=== PATIENT | male | born 1990 | race Caucasian/White ===

== ENCOUNTER 2022-06-06 06:44 | Emergency (ER) | payer OTHER ==
[~2022-06-06] VITALS: Ht 182.9 cm; Wt 95.5 kg
[2022-06-06] MEDS ORDERED: NEOSPORIN OINT 0.9 GM PKT TOP ONE (08:25)
[2022-06-06] MEDS ORDERED: LIDOCAINE 2% MDV 20ML VIAL SC ONE (08:25)
[2022-06-06] MEDS ORDERED: BACI28.43 TOP (09:12)
[2022-06-06] MEDS ORDERED: BACT800T5 PO (09:12)
[2022-06-06 09:22] VITALS: BP 130/77
== END 2022-06-06 09:23 | disposition home or self-care (01) ==
LOC: M ED 06:44
DX: S61.211A Laceration without foreign body of left index finger without damage to nail, initial encounter (principal); W26.0XXA Contact with knife, initial encounter; Y92.009 Unspecified place in unspecified non-institutional (private) residence as the place of occurrence of the external cause; Y93.89 Activity, other specified; Y99.9 Unspecified external cause status; Z79.899 Other long term (current) drug therapy